=== PATIENT | male | born 1995 | race Caucasian/White ===

== ENCOUNTER 2022-02-25 07:29 | Emergency (ER) | payer BC ==
[~2022-02-25] VITALS: Ht 177.8 cm; Wt 77.1 kg
[2022-02-25] MEDS ORDERED: ZEBUTAL 50-3251 EAC1 PO (07:46)
[2022-02-25] MEDS ORDERED: PROM25 PO (07:46)
== END 2022-02-25 07:52 | disposition home or self-care (01) ==
LOC: ER 07:29
DX: G43.909 Migraine, unspecified, not intractable, without status migrainosus (principal)
CPT/HCPCS: 99283